=== PATIENT | male | born 1955 | race Caucasian/White ===

== ENCOUNTER → 2016-11-29 | Outpatient (CLI) | payer OTHER ==
[~2016-11-29] MED LIST: ACTOS45 MG PO; ALPRAZOLAM0.5 MG PO; AMARYL1 MG PO; AMARYL4 MG PO; AMITRIPTYLINE H25 MG PO; AMLODIPINE BESY10 MG PO; AMLODIPINE BESYL5 MG PO; ASPIRIN BUFFER325 MG PO; ASPIRIN EC325 MG PO; ATORVASTATIN CA20 MG PO; ATORVASTATIN CA80 MG PO; AUGMENTIN875 MG PO; BAYER CHEWABLE81 MG PO; CLOPIDOGREL75 MG PO; ENDOCET 5-3251 EACH PO; ERGOCALCIF50000 UNIT PO; FENOFIBRATE160 M1 PO; FUROSEMIDE80 MG PO; GLIMEPIRIDE4 MG PO; HYDROCODON-ACE1 EAC7 PO; IMDUR60 MG PO; KLOR-CON 1010 ME1 PO; LANTUS 3 M100 UNITS1 SC; LANTUS100 UNIT/2 SQ; LASIX20 MG PO; LASIX80 MG PO; LIPITOR20 MG PO; LISINOPRIL10 MG PO; LO-DOSE ASPIRIN81 M1 PO; LOPRESSOR25 MG PO; LOPRESSOR50 MG PO; LOTENSIN20 MG PO; METFORMIN HCL1000 MG PO; MICRO-K10 ME2 PO; NEPHRO-VITE,1 TABLET PO; NITROGLYCERIN0.4 MG SL; NITROSTAT0.4 MG SL; NORCO 5/3251 TABLET PO; NORVASC5 MG PO; NOVOLOG100 UNIT/1 SC; OCUVITE TABLET1 EACH PO; PAROXETINE HCL40 MG PO; PAXIL30 MG PO; PAXIL40 MG PO; PRANDIN1 MG PO; RENA PLEX D PO; RENVELA800 MG PO; SIMVASTATIN40 M1 PO; TRICOR145 MG PO; TRILIPIX135 MG PO; ZESTRIL10 MG PO
== END | disposition home or self-care (01) ==
LOC: AMB 08:09
PROC: 02PYX3Z Removal of Infusion Device from Great Vessel, External Approach (ICD-10-PCS; principal; 2016-11-29)
DX: Z49.01 Encounter for fitting and adjustment of extracorporeal dialysis catheter (principal); N18.6 End stage renal disease

== ENCOUNTER 2017-01-27 01:35 | Inpatient (IN) | payer OTHER ==
[~2017-01-27] VITALS: Ht 170.2 cm; Wt 91.0 kg
[2017-01-27] MEDS ORDERED: NITROSTAT0.4 MG SL (02:04)
[2017-01-27 02:34] LABS: EOSINOPHIL (%) 3.1 % (0-5); EOSINOPHIL COUNT 0.3 K/uL (0-0.3); HEMATOCRIT 34.1 % (38.0-50.0); IMMATURE GRANULOCYTE (%) 0.7 % (0.0-0.7); IMMATURE GRANULOCYTE COUNT 0.1 K/uL; INSTRUMENT ABS NEUTROPHIL CT 6.4 K/uL; LYMPHOCYTE COUNT 0.9 K/uL (1.0-2.8); MCH 30.1 PG (29.0-34.0); MCHC 31.7 G/DL (30.0-36.0); MEAN PLAT.VOLUME 9.5 uM^3 (9.0-12.4); MONOCYTE (%) 11.6 % (3-12); NEUTROPHIL (%) 73.6 % (45-76); NEUTROPHIL COUNT 6.4 K/uL (1.8-6.4); PLATELET COUNT 252 K/uL (156-360); RBC DIS.WIDTH-CV 14.7 % (11.8-14.6); RBC DIS.WIDTH-SD 51.3 % (39-53); RED BLOOD COUNT 3.59 M/uL (4.00-5.50); WHITE BLOOD COUNT 8.6 K/uL (4.1-10.2)
[2017-01-27 02:54] LABS: AMYLASE 46 IU/L (1-118); CHLORIDE 99 mEq/L (99-109); POTASSIUM 3.9 mEq/L (3.7-5.4); SODIUM 137 mEq/L (136-147)
[2017-01-27 02:57] LABS: ANION GAP 13 MEQ/L (2-14)
[2017-01-27 02:59] LABS: GFR ESTIMATE (CALCULATED) 11 mL/min/; SERUM ETHYL ALCOHOL < 10 mg/dL
[2017-01-27 03:00] LABS: GLUCOSE 437 mg/dL (70-99); UREA NITROGEN (BUN) 43 mg/dL (9-23)
[2017-01-27 03:02] LABS: LIPASE 44 U/L (1.0-51.0)
[2017-01-27 04:44] LABS: POINT-OF-CARE METER ID UU13113702
[2017-01-27 12:01] LABS: POINT-OF-CARE METER ID UU13113675
[2017-01-27 14:15] LABS: EOSINOPHIL (%) 0.6 % (0-5); EOSINOPHIL COUNT 0.1 K/uL (0-0.3); HEMATOCRIT 34.1 % (38.0-50.0); IMMATURE GRANULOCYTE (%) 0.6 % (0.0-0.7); IMMATURE GRANULOCYTE COUNT 0.1 K/uL; INSTRUMENT ABS NEUTROPHIL CT 12.3 K/uL; LYMPHOCYTE COUNT 0.5 K/uL (1.0-2.8); MCH 31.1 PG (29.0-34.0); MCV 97.4 FL (86-99); MEAN PLAT.VOLUME 9.5 uM^3 (9.0-12.4); MONOCYTE (%) 9.3 % (3-12); MONOCYTE COUNT 1.3 K/uL (0-0.8); NEUTROPHIL (%) 85.5 % (45-76); NEUTROPHIL COUNT 12.3 K/uL (1.8-6.4); PLATELET COUNT 250 K/uL (156-360); RBC DIS.WIDTH-CV 15.2 % (11.8-14.6); RBC DIS.WIDTH-SD 53.9 % (39-53); WHITE BLOOD COUNT 14.4 K/uL (4.1-10.2)
[2017-01-27 14:38] LABS: ANION GAP 12 MEQ/L (2-14); CHLORIDE 103 MEQ/L (99-109); POTASSIUM 4.3 MEQ/L (3.7-5.4); SAMPLE HEMOLYSIS CHECK 0; SAMPLE ICTERIC CHECK 0; SAMPLE LIPEMIA CHECK 0; SODIUM 139 MEQ/L (136-147)
[2017-01-27 14:44] LABS: GFR ESTIMATE (CALCULATED) 11 mL/min/; GLUCOSE 221 mg/dL (70-99); UREA NITROGEN (BUN) 44 mg/dL (9-23)
[2017-01-27 18:16] VITALS: BP 135/64
[2017-01-27 23:19] LABS: POINT-OF-CARE METER ID UU14149397
[2017-01-27 23:47] VITALS: BP 127/60
[2017-01-28 04:02] VITALS: BP 122/60
[2017-01-28 08:00] VITALS: BP 122/58
[2017-01-28 09:10] LABS: HEMATOCRIT 36.4 % (38.0-50.0); MCH 30.6 PG (29.0-34.0); MCHC 31.3 G/DL (30.0-36.0); MCV 97.8 FL (86-99); MEAN PLAT.VOLUME 9.5 uM^3 (9.0-12.4); PLATELET COUNT 282 K/uL (156-360); RBC DIS.WIDTH-CV 15.3 % (11.8-14.6); RBC DIS.WIDTH-SD 55.5 % (39-53); RED BLOOD COUNT 3.72 M/uL (4.00-5.50); WHITE BLOOD COUNT 15.5 K/uL (4.1-10.2)
[2017-01-28 09:39] LABS: ANION GAP 12 MEQ/L (2-14); CHLORIDE 98 MEQ/L (99-109); GFR ESTIMATE (CALCULATED) 11 mL/min/; GLUCOSE 177 mg/dL (70-99); POTASSIUM 4.5 MEQ/L (3.7-5.4); SAMPLE HEMOLYSIS CHECK 0; SAMPLE ICTERIC CHECK 0; SAMPLE LIPEMIA CHECK 0; SODIUM 138 MEQ/L (136-147); UREA NITROGEN (BUN) 28 mg/dL (9-23)
[2017-01-28 11:33] VITALS: BP 116/56
[2017-01-28 12:05] LABS: POINT-OF-CARE METER ID UU14188577
[2017-01-28] MEDS ORDERED: ENDOCET 5-3251 EACH PO (16:26)
[2017-01-28 16:28] VITALS: BP 112/57
[2017-01-28 16:53] LABS: POINT-OF-CARE METER ID UU14188577
[2017-01-28 19:50] VITALS: BP 117/65
[2017-01-28 21:47] LABS: POINT-OF-CARE METER ID UU14149397
[2017-01-28 23:50] VITALS: BP 123/57
[2017-01-29 04:03] VITALS: BP 112/56
[2017-01-29 07:10] LABS: POINT-OF-CARE METER ID UU14188577
[2017-01-29 08:16] VITALS: BP 122/57
[2017-01-29 11:44] LABS: POINT-OF-CARE METER ID UU14188577
[2017-01-29 11:56] VITALS: BP 134/65
[2017-01-29] MEDS ORDERED: ENDOCET 5-3251 EACH PO (13:55)
== END 2017-01-29 14:18 | disposition home or self-care (01) | DRG 510 ==
LOC: EME → TRA → EME 01:35 → TRA 01:35 → EDBD 01:35 → 3EAST 06:52 → EDOF 06:52 → 3EAST 17:54
PROVIDERS: Emergency Medicine; Hospitalist; Internal Medicine; Internal Medicine Nephrology
PROC: 0PSL04Z Reposition Left Ulna with Internal Fixation Device, Open Approach (ICD-10-PCS; principal; 2017-01-27)
PROC: 0PSJ04Z Reposition Left Radius with Internal Fixation Device, Open Approach (ICD-10-PCS; principal; 2017-01-27)
PROC: 0PSJXZZ Reposition Left Radius, External Approach (ICD-10-PCS; 2017-01-27)
PROC: 0PSLXZZ Reposition Left Ulna, External Approach (ICD-10-PCS; 2017-01-27)
PROC: 5A1D00Z (ICD-10-PCS; 2017-01-27)
DX: S52.322A Displaced transverse fracture of shaft of left radius, initial encounter for closed fracture (principal); S52.252A Displaced comminuted fracture of shaft of ulna, left arm, initial encounter for closed fracture; S20.212A Contusion of left front wall of thorax, initial encounter; Y08.02XA Assault by strike by baseball bat, initial encounter; E11.22 Type 2 diabetes mellitus with diabetic chronic kidney disease; I12.0 Hypertensive chronic kidney disease with stage 5 chronic kidney disease or end stage renal disease; N18.6 End stage renal disease; D63.1 Anemia in chronic kidney disease; I25.10 Atherosclerotic heart disease of native coronary artery without angina pectoris; E11.65 Type 2 diabetes mellitus with hyperglycemia; F32.9 Major depressive disorder, single episode, unspecified; G89.29 Other chronic pain; E78.5 Hyperlipidemia, unspecified; E78.00 Pure hypercholesterolemia, unspecified; F41.9 Anxiety disorder, unspecified; F17.200 Nicotine dependence, unspecified, uncomplicated; I25.2 Old myocardial infarction; Z79.82 Long term (current) use of aspirin; Z79.02 Long term (current) use of antithrombotics/antiplatelets; Z99.2 Dependence on renal dialysis
CPT/HCPCS: 71250; 73090; 76000; 80048; 80069; 81003; 82150; 82948; 83690; 85025; 85025 91; 85027; 93005; 94760; 94799; 99281; 99285; C1713; G0480; J0360; J0690; J1170; J1644; J1650; J1815; J2250; J2270; J2405; J3010; J7030; J7050; S0020

== ENCOUNTER 2017-02-28 07:44 | Day surgery (SDC) | payer OTHER ==
[~2017-02-28] VITALS: Ht 170.2 cm; Wt 88.0 kg
[~2017-02-28 07:44] MED LIST changes: +NOVOLOG PE100 UNITS/ SC
[2017-02-28 08:53] LABS: POINT-OF-CARE METER ID UU13113696
[2017-02-28 09:55] LABS: METH RESISTANT S AUREUS PCR NEGATIVE (NEGATIVE)
[2017-02-28 10:05] LABS: PROBE CHECK PASS; SPECIMEN PROCESSING CONTROL PASS
== END 2017-02-28 10:42 | disposition home or self-care (01) ==
LOC: CATH 07:44
PROVIDERS: Surgery
DX: T82.858A Stenosis of other vascular prosthetic devices, implants and grafts, initial encounter (principal); Y83.2 Surgical operation with anastomosis, bypass or graft as the cause of abnormal reaction of the patient, or of later complication, without mention of misadventure at the time of the procedure; I12.0 Hypertensive chronic kidney disease with stage 5 chronic kidney disease or end stage renal disease; E11.22 Type 2 diabetes mellitus with diabetic chronic kidney disease; N18.6 End stage renal disease; Z99.2 Dependence on renal dialysis; Z85.51 Personal history of malignant neoplasm of bladder; I51.9 Heart disease, unspecified; F17.200 Nicotine dependence, unspecified, uncomplicated; Z79.82 Long term (current) use of aspirin; Z79.84 Long term (current) use of oral hypoglycemic drugs
CPT/HCPCS: 82948; 87641; C1725; C1769; C1894; J1644; J2250; J3010

== ENCOUNTER 2017-08-02 19:11 | Observation (INO) | payer OTHER ==
[~2017-08-02] VITALS: Ht 170.2 cm; Wt 92.7 kg
[2017-08-02 19:41] LABS: EOSINOPHIL (%) 2.4 % (0-5); EOSINOPHIL COUNT 0.2 K/uL (0-0.3); HEMATOCRIT 33.6 % (38.0-50.0); IMMATURE GRANULOCYTE (%) 0.2 % (0.0-0.7); INSTRUMENT ABS NEUTROPHIL CT 7.2 K/uL; LYMPHOCYTE COUNT 0.7 K/uL (1.0-2.8); MCH 29.7 PG (29.0-34.0); MCHC 31.3 G/DL (30.0-36.0); MCV 94.9 FL (86-99); MEAN PLAT.VOLUME 9.4 uM^3 (9.0-12.4); MONOCYTE (%) 10.4 % (3-12); NEUTROPHIL (%) 78.8 % (45-76); NEUTROPHIL COUNT 7.2 K/uL (1.8-6.4); PLATELET COUNT 195 K/uL (156-360); RED BLOOD COUNT 3.54 M/uL (4.00-5.50); WHITE BLOOD COUNT 9.2 K/uL (4.1-10.2)
[2017-08-02 19:55] LABS: CHLORIDE 97 mEq/L (99-109); POTASSIUM 3.5 mEq/L (3.7-5.4); SODIUM 142 mEq/L (136-147)
[2017-08-02 19:57] LABS: GLUCOSE 190 mg/dL (70-99)
[2017-08-02 19:58] LABS: ANION GAP 17 MEQ/L (2-14)
[2017-08-02 19:59] LABS: TOTAL BILIRUBIN 0.5 mg/dL (0.0-1.0)
[2017-08-02 20:01] LABS: ALKALINE PHOSPHATASE 157 IU/L (3-129); GFR ESTIMATE (CALCULATED) 11 mL/min/
[2017-08-02 20:02] LABS: UREA NITROGEN (BUN) 29 mg/dL (9-23)
[2017-08-02 20:04] LABS: TROP-I INTERPRETATION NEGATIVE; TROPONIN-I 0.03 ng/mL (0.0-0.30)
[2017-08-02] MEDS ORDERED: PLAVIX75 MG PO (23:22)
[2017-08-02] MEDS ORDERED: IMDUR60 MG PO (23:22)
[2017-08-02] MEDS ORDERED: LO-DOSE ASPIRIN81 M2 PO (23:25)
[2017-08-03 00:38] VITALS: BP 181/77
[2017-08-03 02:21] LABS: TROP-I INTERPRETATION NEGATIVE; TROPONIN-I 0.02 ng/mL (0.0-0.30)
[2017-08-03 02:27] LABS: HDL CHOLESTEROL 42 MG/DL (Desirable>=40); LDL CHOLESTEROL 30 mg/dL (Desirable<100); NON-HDL CHOLESTEROL 49 mg/dL (Desirable<160); TOTAL CHOLESTEROL 91 mg/dL (Desirable<200); TRIGLYCERIDES 95 MG/DL (Normal: <150)
[2017-08-03 03:53] VITALS: BP 157/72
[2017-08-03 07:04] VITALS: BP 160/74
[2017-08-03 08:56] LABS: POINT-OF-CARE METER ID UU13113831
[2017-08-03 09:10] LABS: TROP-I INTERPRETATION NEGATIVE; TROPONIN-I 0.05 ng/mL (0.0-0.30)
[2017-08-03 11:30] VITALS: BP 152/69
[2017-08-03 11:36] LABS: POINT-OF-CARE METER ID UU13113700
[2017-08-03 16:00] VITALS: BP 164/74
[2017-08-03] MEDS ORDERED: IMDUR120 MG PO (16:06)
== END 2017-08-03 16:45 | disposition home or self-care (01) ==
LOC: EME 19:11 → 5WEST 22:44 → EDOF 22:44 → ENRESERV 22:49 → ENPENDDIS 08-03 → 5WEST 08-03 00:29
PROVIDERS: Emergency Medicine; Hospitalist; Physician Assistant Medical
DX: I25.118 Atherosclerotic heart disease of native coronary artery with other forms of angina pectoris (principal); I12.0 Hypertensive chronic kidney disease with stage 5 chronic kidney disease or end stage renal disease; N18.6 End stage renal disease; Z99.2 Dependence on renal dialysis; J90 Pleural effusion, not elsewhere classified; Z95.5 Presence of coronary angioplasty implant and graft; R06.02 Shortness of breath; R05 Cough; G89.29 Other chronic pain; Z85.51 Personal history of malignant neoplasm of bladder; E11.319 Type 2 diabetes mellitus with unspecified diabetic retinopathy without macular edema; H54.42 Blindness, left eye, normal vision right eye; F41.9 Anxiety disorder, unspecified; Z72.0 Tobacco use; Z79.82 Long term (current) use of aspirin; Z79.84 Long term (current) use of oral hypoglycemic drugs; E66.01 Morbid (severe) obesity due to excess calories; Z68.32 Body mass index [BMI] 32.0-32.9, adult; I95.3 Hypotension of hemodialysis; E11.65 Type 2 diabetes mellitus with hyperglycemia; E88.09 Other disorders of plasma-protein metabolism, not elsewhere classified; Z91.19 Patient's noncompliance with other medical treatment and regimen; M79.89 Other specified soft tissue disorders; E78.5 Hyperlipidemia, unspecified; Z80.1 Family history of malignant neoplasm of trachea, bronchus and lung; Z83.3 Family history of diabetes mellitus; Z82.49 Family history of ischemic heart disease and other diseases of the circulatory system
CPT/HCPCS: 71020; 80053; 80061; 82948; 84484; 85025; 93005; 94799; 99281; 99285; G0257; G0378; J1644

== ENCOUNTER 2017-08-24 20:07 | Emergency (ER) | payer OTHER ==
[~2017-08-24] VITALS: Ht 170.2 cm; Wt 99.4 kg
[~2017-08-24 20:07] MED LIST changes: +IMDUR120 MG PO; +LO-DOSE ASPIRIN81 M2 PO; +PLAVIX75 MG PO
[2017-08-24 21:12] LABS: HEMATOCRIT 32.4 % (38.0-50.0); MCH 30.5 PG (29.0-34.0); MCHC 31.8 G/DL (30.0-36.0); MCV 95.9 FL (86-99); MEAN PLAT.VOLUME 9.5 uM^3 (9.0-12.4); PLATELET COUNT 169 K/uL (156-360); RBC DIS.WIDTH-CV 16.5 % (11.8-14.6); RBC DIS.WIDTH-SD 58.2 % (39-53); RED BLOOD COUNT 3.38 M/uL (4.00-5.50); WHITE BLOOD COUNT 7.9 K/uL (4.1-10.2)
[2017-08-24 21:24] LABS: CHLORIDE 104 mEq/L (99-109); POTASSIUM 3.8 mEq/L (3.7-5.4); SODIUM 142 mEq/L (136-147)
[2017-08-24 21:25] LABS: GLUCOSE 139 mg/dL (70-99)
[2017-08-24 21:27] LABS: ANION GAP 16 MEQ/L (2-14)
[2017-08-24 21:29] LABS: GFR ESTIMATE (CALCULATED) 7 mL/min/
[2017-08-24 21:30] LABS: UREA NITROGEN (BUN) 55 mg/dL (9-23)
[2017-08-24 21:35] LABS: TROP-I INTERPRETATION NEGATIVE; TROPONIN-I 0.02 ng/mL (0.0-0.30)
[2017-08-24] MEDS ORDERED: LASIX40 MG PO (22:59)
[2017-08-24 23:18] VITALS: BP 160/83
== END 2017-08-24 23:21 | disposition home or self-care (01) ==
LOC: EME 20:07
PROVIDERS: Emergency Medicine
DX: R60.0 Localized edema (principal); R06.02 Shortness of breath; I12.0 Hypertensive chronic kidney disease with stage 5 chronic kidney disease or end stage renal disease; E11.22 Type 2 diabetes mellitus with diabetic chronic kidney disease; N18.6 End stage renal disease; Z99.2 Dependence on renal dialysis; E78.5 Hyperlipidemia, unspecified; Z79.02 Long term (current) use of antithrombotics/antiplatelets; Z79.82 Long term (current) use of aspirin; Z85.51 Personal history of malignant neoplasm of bladder; F17.200 Nicotine dependence, unspecified, uncomplicated
CPT/HCPCS: 71010; 80048; 84484; 85027; 93005; 99281; 99285

== ENCOUNTER 2017-09-29 01:57 | Inpatient (IN) | payer OTHER ==
[~2017-09-29] VITALS: Ht 170.2 cm; Wt 94.2 kg
[~2017-09-29 01:57] MED LIST changes: +LASIX40 MG PO
[2017-09-29 02:21] LABS: HEMATOCRIT 32.7 % (38.0-50.0); MCH 30.6 PG (29.0-34.0); MCHC 32.4 G/DL (30.0-36.0); MCV 94.5 FL (86-99); MEAN PLAT.VOLUME 9.7 uM^3 (9.0-12.4); PLATELET COUNT 210 K/uL (156-360); RBC DIS.WIDTH-CV 15.1 % (11.8-14.6); RBC DIS.WIDTH-SD 51.9 % (39-53); RED BLOOD COUNT 3.46 M/uL (4.00-5.50); WHITE BLOOD COUNT 8.8 K/uL (4.1-10.2)
[2017-09-29 02:31] LABS: CHLORIDE 100 mEq/L (99-109); POTASSIUM 3.9 mEq/L (3.7-5.4); SODIUM 136 mEq/L (136-147)
[2017-09-29 02:32] LABS: GLUCOSE 260 mg/dL (70-99); INTER. NORMALIZED RATIO 1.2; PROTHROMBIN TIME 13.7 SEC (10.2-12.9)
[2017-09-29 02:34] LABS: ANION GAP 15 MEQ/L (2-14)
[2017-09-29 02:35] LABS: PTT 34.7 SEC (25-37)
[2017-09-29 02:36] LABS: GFR ESTIMATE (CALCULATED) 8 mL/min/
[2017-09-29 02:37] LABS: UREA NITROGEN (BUN) 62 mg/dL (9-23)
[2017-09-29 02:42] LABS: TROP-I INTERPRETATION NEGATIVE; TROPONIN-I 0.02 ng/mL (0.0-0.30)
[2017-09-29] MEDS ORDERED: ABILIFY2 MG PO (04:44)
[2017-09-29] MEDS ORDERED: VENTOLIN HFA18 GM IH (04:45)
[2017-09-29 07:41] LABS: TROP-I INTERPRETATION NEGATIVE; TROPONIN-I 0.09 ng/mL (0.0-0.30)
[2017-09-29 07:42] LABS: POINT-OF-CARE METER ID UU13113698
[2017-09-29 08:15] VITALS: BP 185/71
[2017-09-29 16:00] VITALS: BP 161/70
[2017-09-29 16:04] LABS: TROP-I INTERPRETATION NEGATIVE
[2017-09-29 16:39] LABS: POINT-OF-CARE METER ID UU13113781
[2017-09-29 19:17] VITALS: BP 154/69
[2017-09-29 20:51] LABS: POINT-OF-CARE METER ID UU13113781
[2017-09-29 23:37] VITALS: BP 131/62
[2017-09-30 04:50] VITALS: BP 159/81
[2017-09-30 05:27] LABS: HEMATOCRIT 33.5 % (38.0-50.0); MCH 30.2 PG (29.0-34.0); MCHC 31.9 G/DL (30.0-36.0); MCV 94.6 FL (86-99); MEAN PLAT.VOLUME 9.5 uM^3 (9.0-12.4); PLATELET COUNT 218 K/uL (156-360); RBC DIS.WIDTH-CV 14.9 % (11.8-14.6); RBC DIS.WIDTH-SD 51.6 % (39-53); RED BLOOD COUNT 3.54 M/uL (4.00-5.50); WHITE BLOOD COUNT 6.8 K/uL (4.1-10.2)
[2017-09-30 05:54] LABS: ANION GAP 13 MEQ/L (2-14); CHLORIDE 101 MEQ/L (99-109); GFR ESTIMATE (CALCULATED) 12 mL/min/; SAMPLE HEMOLYSIS CHECK 0; SAMPLE ICTERIC CHECK 0; SAMPLE LIPEMIA CHECK 0; SODIUM 142 MEQ/L (136-147); UREA NITROGEN (BUN) 36 mg/dL (9-23)
[2017-09-30 05:55] LABS: GLUCOSE 106 mg/dL (70-99)
[2017-09-30 07:45] LABS: POINT-OF-CARE METER ID UU13113698
[2017-09-30 07:59] VITALS: BP 148/67
== END 2017-09-30 12:00 | disposition home or self-care (01) | DRG 291 ==
LOC: EME 01:57 → EDOF 04:08 → ENRESERV 04:13 → 4EAST 06:10 → ENPENDDIS 09-30 → 4EAST 09-30 12:00
PROVIDERS: Emergency Medicine; Hospitalist
PROC: 5A1D70Z Performance of Urinary Filtration, Intermittent, Less than 6 Hours Per Day (ICD-10-PCS; principal; 2017-09-29)
DX: I13.2 Hypertensive heart and chronic kidney disease with heart failure and with stage 5 chronic kidney disease, or end stage renal disease (principal); I50.23 Acute on chronic systolic (congestive) heart failure; N18.6 End stage renal disease; Z99.2 Dependence on renal dialysis; E11.22 Type 2 diabetes mellitus with diabetic chronic kidney disease; D63.1 Anemia in chronic kidney disease; E11.65 Type 2 diabetes mellitus with hyperglycemia; N25.81 Secondary hyperparathyroidism of renal origin; E11.3591 Type 2 diabetes mellitus with proliferative diabetic retinopathy without macular edema, right eye; E78.5 Hyperlipidemia, unspecified; I25.10 Atherosclerotic heart disease of native coronary artery without angina pectoris; I25.2 Old myocardial infarction; I45.10 Unspecified right bundle-branch block; R09.02 Hypoxemia; I89.0 Lymphedema, not elsewhere classified; F41.9 Anxiety disorder, unspecified; E66.9 Obesity, unspecified; Z68.32 Body mass index [BMI] 32.0-32.9, adult; F32.9 Major depressive disorder, single episode, unspecified; G89.29 Other chronic pain; H54.62 Unqualified visual loss, left eye, normal vision right eye; Z85.51 Personal history of malignant neoplasm of bladder; F17.210 Nicotine dependence, cigarettes, uncomplicated; Z91.11 Patient's noncompliance with dietary regimen; Z91.15 Patient's noncompliance with renal dialysis; Z95.5 Presence of coronary angioplasty implant and graft; Z79.84 Long term (current) use of oral hypoglycemic drugs; Z79.82 Long term (current) use of aspirin; Z79.02 Long term (current) use of antithrombotics/antiplatelets; Z80.1 Family history of malignant neoplasm of trachea, bronchus and lung; Z82.49 Family history of ischemic heart disease and other diseases of the circulatory system; Z83.3 Family history of diabetes mellitus
CPT/HCPCS: 71010; 71250; 80048; 82948; 83880; 84484; 85027; 85610; 85730; 93005; 93970; 94799; 99202; 99281; 99285; J1644; J1815; J1940

== ENCOUNTER 2017-10-09 05:17 | Inpatient (IN) | payer OTHER ==
[~2017-10-09] VITALS: Ht 170.2 cm; Wt 87.6 kg
[~2017-10-09 05:17] MED LIST changes: +ABILIFY2 MG PO; +VENTOLIN HFA18 GM IH
[2017-10-09 05:43] LABS: HEMATOCRIT 32.5 % (38.0-50.0); MCH 30.9 PG (29.0-34.0); MCHC 32.3 G/DL (30.0-36.0); MCV 95.6 FL (86-99); MEAN PLAT.VOLUME 9.8 uM^3 (9.0-12.4); PLATELET COUNT 182 K/uL (156-360); RBC DIS.WIDTH-CV 15.3 % (11.8-14.6); RBC DIS.WIDTH-SD 53.9 % (39-53); WHITE BLOOD COUNT 7.2 K/uL (4.1-10.2)
[2017-10-09 05:52] LABS: CHLORIDE 98 mEq/L (99-109); GLUCOSE 258 mg/dL (70-99); POTASSIUM 4.2 mEq/L (3.7-5.4); SODIUM 138 mEq/L (136-147)
[2017-10-09 05:53] LABS: ANION GAP 17 MEQ/L (2-14)
[2017-10-09 05:55] LABS: GFR ESTIMATE (CALCULATED) 7 mL/min/
[2017-10-09 05:56] LABS: UREA NITROGEN (BUN) 63 mg/dL (9-23)
[2017-10-09 06:00] LABS: TROP-I INTERPRETATION INDETERMINATE; TROPONIN-I 0.57 ng/mL (0.0-0.30)
[2017-10-09 06:18] LABS: ADD MIUA? YES; BILIRUBIN NEGATIVE; BLOOD SMALL; COLOR YELLOW ((YELLOW)); GLUCOSE (STRIP) >=500; KETONES NEGATIVE; LEUKOCYTES NEGATIVE; NITRITE NEGATIVE; PROTEIN (STRIP) >=500; SPECIFIC GRAVITY 1.018 (1.000-1.030); UROBILINOGEN 0.2 MG/DL (0.2-1.0)
[2017-10-09 06:24] LABS: BACTERIA RARE /HPF; EPITHELIAL CELLS NONE SEEN /HPF; HYALINE CASTS 0-5 /LPF; MUCUS TRACE /LPF; RED BLOOD CELLS 20-30 /HPF (0-5); UCUL ADDED? NO; WHITE BLOOD CELLS 0-5 /HPF (0-5)
[2017-10-09 13:32] LABS: HBSG INDEX 0.17
[2017-10-09 13:33] LABS: HEPATITIS B SURFACE ANTIBODY Nonreactive
[2017-10-09 14:02] LABS: TROP-I INTERPRETATION POSITIVE; TROPONIN-I 0.73 ng/mL (0.0-0.30)
[2017-10-09 17:19] LABS: POINT-OF-CARE METER ID UU13113781
[2017-10-09 17:41] VITALS: BP 167/62
[2017-10-09 18:36] LABS: TROP-I INTERPRETATION POSITIVE; TROPONIN-I 0.75 ng/mL (0.0-0.30)
[2017-10-09 19:27] VITALS: BP 153/68
[2017-10-09 21:26] LABS: POINT-OF-CARE METER ID UU14174216
[2017-10-10 05:18] VITALS: BP 123/68
[2017-10-10 05:28] LABS: EOSINOPHIL (%) 2.3 % (0-5); EOSINOPHIL COUNT 0.1 K/uL (0-0.3); HEMATOCRIT 33.2 % (38.0-50.0); IMMATURE GRANULOCYTE (%) 0.2 % (0.0-0.7); INSTRUMENT ABS NEUTROPHIL CT 3.2 K/uL; LYMPHOCYTE COUNT 1.1 K/uL (1.0-2.8); MCH 30.5 PG (29.0-34.0); MCHC 32.2 G/DL (30.0-36.0); MCV 94.6 FL (86-99); MEAN PLAT.VOLUME 9.7 uM^3 (9.0-12.4); MONOCYTE COUNT 0.7 K/uL (0-0.8); NEUTROPHIL (%) 61.9 % (45-76); NEUTROPHIL COUNT 3.2 K/uL (1.8-6.4); PLATELET COUNT 173 K/uL (156-360); RBC DIS.WIDTH-SD 51.8 % (39-53); RED BLOOD COUNT 3.51 M/uL (4.00-5.50); WHITE BLOOD COUNT 5.1 K/uL (4.1-10.2)
[2017-10-10 05:50] LABS: ANION GAP 12 MEQ/L (2-14); CHLORIDE 96 MEQ/L (99-109); POTASSIUM 3.8 MEQ/L (3.7-5.4); SAMPLE HEMOLYSIS CHECK 0; SAMPLE ICTERIC CHECK 0; SAMPLE LIPEMIA CHECK 0; SODIUM 140 MEQ/L (136-147); VANCOMYCIN, TROUGH 15.3 MCG/ML (10-20)
[2017-10-10 05:52] LABS: GFR ESTIMATE (CALCULATED) 13 mL/min/; GLUCOSE 126 mg/dL (70-99); UREA NITROGEN (BUN) 31 mg/dL (9-23)
[2017-10-10 07:35] LABS: POINT-OF-CARE METER ID UU14314088
[2017-10-10 07:50] VITALS: BP 106/55
[2017-10-10 07:57] LABS: INTERNAL CONTROL VALID? YES
[2017-10-10 11:32] VITALS: BP 119/58
[2017-10-10 12:12] LABS: POINT-OF-CARE METER ID UU13113781; POINT-OF-CARE USER ID ENVKC36
[2017-10-10] MEDS ORDERED: ARIPIPRAZOLE2 MG PO (14:50)
[2017-10-10 14:53] LABS: METH RESISTANT S AUREUS PCR NEGATIVE (NEGATIVE); PROBE CHECK PASS; SPECIMEN PROCESSING CONTROL PASS
[2017-10-10] MEDS ORDERED: CEFDINIR300 MG PO (15:05)
[2017-10-10 15:07] VITALS: BP 157/70
[2017-10-10 16:49] LABS: POINT-OF-CARE METER ID UU13113781; POINT-OF-CARE USER ID ENVKC36
== END 2017-10-10 18:01 | disposition home health service (06) | DRG 193 ==
LOC: EME → EDBD 05:17 → EDOF 08:10 → ENRESERV 08:22 → CANRESERV 13:09 → ENRESERV 13:09 → 4EAST 15:26 → EDOF 15:26 → ENRESERV 15:33 → 4EAST 16:35
PROVIDERS: Emergency Medicine; Family Medicine; Hospitalist; Internal Medicine Nephrology; Physician Assistant
DX: J18.9 Pneumonia, unspecified organism (principal); J96.01 Acute respiratory failure with hypoxia; J81.1 Chronic pulmonary edema; J90 Pleural effusion, not elsewhere classified; R74.8 Abnormal levels of other serum enzymes; N18.6 End stage renal disease; I13.2 Hypertensive heart and chronic kidney disease with heart failure and with stage 5 chronic kidney disease, or end stage renal disease; I50.9 Heart failure, unspecified; I25.10 Atherosclerotic heart disease of native coronary artery without angina pectoris; E78.5 Hyperlipidemia, unspecified; J98.11 Atelectasis; G89.29 Other chronic pain; E11.22 Type 2 diabetes mellitus with diabetic chronic kidney disease; E11.3591 Type 2 diabetes mellitus with proliferative diabetic retinopathy without macular edema, right eye; M51.27 Other intervertebral disc displacement, lumbosacral region; F17.210 Nicotine dependence, cigarettes, uncomplicated; D63.1 Anemia in chronic kidney disease; Z68.30 Body mass index [BMI] 30.0-30.9, adult; E11.3599 Type 2 diabetes mellitus with proliferative diabetic retinopathy without macular edema, unspecified eye; H54.62 Unqualified visual loss, left eye, normal vision right eye; F41.9 Anxiety disorder, unspecified; F32.9 Major depressive disorder, single episode, unspecified; G47.30 Sleep apnea, unspecified; Z85.51 Personal history of malignant neoplasm of bladder; Z95.5 Presence of coronary angioplasty implant and graft; Z99.2 Dependence on renal dialysis; I25.2 Old myocardial infarction; Z90.49 Acquired absence of other specified parts of digestive tract; Z82.49 Family history of ischemic heart disease and other diseases of the circulatory system; Z83.3 Family history of diabetes mellitus; Z80.1 Family history of malignant neoplasm of trachea, bronchus and lung
CPT/HCPCS: 71010; 71020; 71250; 80048; 80202; 81003; 82948; 83605; 83880; 84484; 85025; 85027; 86706; 87040; 87070; 87205; 87340; 87449; 87502; 87641; 93005; 93306; 94640; 94799; 99202; J0692; J1644; J1815; J1940; J2543; J3370

== ENCOUNTER 2017-12-02 02:59 | Observation (INO) | payer OTHER ==
[~2017-12-02] VITALS: Ht 170.2 cm; Wt 92.9 kg
[~2017-12-02 02:59] MED LIST changes: +ARIPIPRAZOLE2 MG PO; +CEFDINIR300 MG PO
[2017-12-02 03:30] LABS: HEMATOCRIT 33.3 % (38.0-50.0); HEMOGLOBIN 10.7 G/DL (12.5-16.6); MCH 30.9 PG (29.0-34.0); MCHC 32.1 G/DL (30.0-36.0); MCV 96.2 FL (86-99); PLATELET COUNT 173 K/uL (156-360); RBC DIS.WIDTH-CV 16.5 % (11.8-14.6); RBC DIS.WIDTH-SD 58.3 % (39-53); RED BLOOD COUNT 3.46 M/uL (4.00-5.50); WHITE BLOOD COUNT 7.3 K/uL (4.1-10.2)
[2017-12-02 03:38] LABS: CHLORIDE 110 mEq/L (99-109); POTASSIUM 5.6 mEq/L (3.7-5.4); SODIUM 138 mEq/L (136-147)
[2017-12-02 03:40] LABS: GLUCOSE 234 mg/dL (70-99)
[2017-12-02 03:44] LABS: CREATININE 11.8 mg/dL (0.6-1.3); GFR ESTIMATE (CALCULATED) 5 mL/min/ (58.99-99999)
[2017-12-02 03:50] LABS: TROP-I INTERPRETATION NEGATIVE; TROPONIN-I 0.02 ng/mL (0.0-0.30)
[2017-12-02 04:16] LABS: UREA NITROGEN (BUN) 113 mg/dL (9-23)
[2017-12-02 04:24] LABS: ALBUMIN 3.2 g/dL (3.2-4.8)
[2017-12-02 04:27] LABS: TOTAL PROTEIN 6.8 g/dL (6.4-8.3)
[2017-12-02 04:29] LABS: TOTAL BILIRUBIN 0.4 mg/dL (0.0-1.0)
[2017-12-02 04:30] LABS: ALKALINE PHOSPHATASE 191 IU/L (3-129)
[2017-12-02 04:32] LABS: AST (GOT) 25 IU/L (2-34)
[2017-12-02 04:33] LABS: ALT (GPT) 55 IU/L (3-49); DIRECT BILIRUBIN 0.2 mg/dL (0.0-0.3)
[2017-12-02 04:34] LABS: LIPASE 62 U/L (1.0-51.0)
[2017-12-02 08:49] VITALS: BP 214/95
[2017-12-02 12:02] LABS: HEPATITIS B SURFACE ANTIGEN Nonreactive
[2017-12-02 12:03] LABS: HEPATITIS B SURFACE ANTIBODY Nonreactive
[2017-12-02] MEDS ORDERED: LASIX40 MG PO (13:47)
== END 2017-12-02 15:20 | disposition home or self-care (01) ==
LOC: EME 02:59 → EDOF 05:46 → ENRESERV 05:49 → 5SOUTH 08:32 → ENPENDDIS 13:46 → 5SOUTH 15:20
PROVIDERS: Hospitalist; Internal Medicine; Internal Medicine Nephrology
PROC: 5A1D70Z Performance of Urinary Filtration, Intermittent, Less than 6 Hours Per Day (ICD-10-PCS; principal; 2017-12-02)
DX: E87.70 Fluid overload, unspecified (principal); I12.0 Hypertensive chronic kidney disease with stage 5 chronic kidney disease or end stage renal disease; E11.22 Type 2 diabetes mellitus with diabetic chronic kidney disease; N18.6 End stage renal disease; Z99.2 Dependence on renal dialysis; Z91.14 Patient's other noncompliance with medication regimen; Z91.15 Patient's noncompliance with renal dialysis; D63.1 Anemia in chronic kidney disease; E87.5 Hyperkalemia; E87.2 Acidosis; I25.10 Atherosclerotic heart disease of native coronary artery without angina pectoris; F41.9 Anxiety disorder, unspecified; E78.5 Hyperlipidemia, unspecified; F17.210 Nicotine dependence, cigarettes, uncomplicated; N25.81 Secondary hyperparathyroidism of renal origin; J81.1 Chronic pulmonary edema; I25.2 Old myocardial infarction; Z95.5 Presence of coronary angioplasty implant and graft; Z85.51 Personal history of malignant neoplasm of bladder; E11.3599 Type 2 diabetes mellitus with proliferative diabetic retinopathy without macular edema, unspecified eye; G89.29 Other chronic pain; H54.40 Blindness, one eye, unspecified eye; Z90.49 Acquired absence of other specified parts of digestive tract; Z82.49 Family history of ischemic heart disease and other diseases of the circulatory system; Z83.3 Family history of diabetes mellitus; Z80.1 Family history of malignant neoplasm of trachea, bronchus and lung; F32.9 Major depressive disorder, single episode, unspecified
CPT/HCPCS: 71046; 80048; 80076; 82948; 83690; 84484; 85027; 86706; 87340; 93005; 94640; G0257; G0378; J1644; J1940

== ENCOUNTER 2018-05-04 04:28 | Emergency (ER) | payer OTHER ==
[~2018-05-04] VITALS: Ht 170.2 cm; Wt 93.3 kg
[2018-05-04] MEDS ORDERED: PERCOCET 5/31 TABLET PO (06:41)
[2018-05-04 07:00] VITALS: BP 178/58
== END 2018-05-04 07:01 | disposition home or self-care (01) ==
LOC: EME 04:28
DX: M79.602 Pain in left arm (principal); E11.9 Type 2 diabetes mellitus without complications; I50.9 Heart failure, unspecified; E78.5 Hyperlipidemia, unspecified; I25.2 Old myocardial infarction; F41.9 Anxiety disorder, unspecified; F32.9 Major depressive disorder, single episode, unspecified; F17.200 Nicotine dependence, unspecified, uncomplicated; Z99.2 Dependence on renal dialysis; Z79.84 Long term (current) use of oral hypoglycemic drugs; Z79.82 Long term (current) use of aspirin; Z85.51 Personal history of malignant neoplasm of bladder; Z87.39 Personal history of other diseases of the musculoskeletal system and connective tissue; Z90.49 Acquired absence of other specified parts of digestive tract
CPT/HCPCS: 73090; 93990; 99281; 99285

== ENCOUNTER 2018-07-02 06:45 | Observation (INO) | payer OTHER ==
[~2018-07-02] VITALS: Ht 170.2 cm; Wt 90.2 kg
[~2018-07-02 06:45] MED LIST changes: +PERCOCET 5/31 TABLET PO
[2018-07-02 07:19] LABS: HEMATOCRIT 32.8 % (38.0-50.0); MCH 32.5 PG (29.0-34.0); MCHC 33.5 G/DL (30.0-36.0); PLATELET COUNT 169 K/uL (156-360); RBC DIS.WIDTH-SD 48.7 % (39-53); RED BLOOD COUNT 3.38 M/uL (4.00-5.50); WHITE BLOOD COUNT 8.5 K/uL (4.1-10.2)
[2018-07-02 07:55] LABS: ALBUMIN 3.7 G/DL (3.2-4.8); ALKALINE PHOSPHATASE 85 IU/L (3-129); ALT (GPT) 17 IU/L (3-49); AST (GOT) 12 IU/L (2-34); CHLORIDE 102 MEQ/L (99-109); CREATININE 13.2 MG/DL (0.6-1.3); GFR ESTIMATE (CALCULATED) 4 mL/min/ (58.99-99999); GLUCOSE 147 mg/dL (70-99); LIPASE 13 U/L (1.0-51.0); POTASSIUM 5.4 MEQ/L (3.7-5.4); SODIUM 142 MEQ/L (136-147); TOTAL BILIRUBIN 0.8 MG/DL (0.0-1.0); TOTAL PROTEIN 7.1 G/DL (6.4-8.3); UREA NITROGEN (BUN) 80 mg/dL (9-23)
[2018-07-02 07:58] LABS: TROP-I INTERPRETATION NEGATIVE; TROPONIN-I 0.07 ng/mL (0.0-0.30)
[2018-07-02] MEDS ORDERED: IMDUR120 MG PO (09:14)
[2018-07-02] MEDS ORDERED: RENAPLEX-D TAB1 EACH PO (09:14)
[2018-07-02] MEDS ORDERED: [UNRECOGNIZED DRUG - OTHER] PO (09:15)
[2018-07-02 15:36] LABS: TROP-I INTERPRETATION NEGATIVE; TROPONIN-I 0.09 ng/mL (0.0-0.30)
[2018-07-02 17:42] VITALS: BP 148/71
[2018-07-02 19:20] VITALS: BP 154/55
[2018-07-02 20:07] LABS: TROP-I INTERPRETATION NEGATIVE
[2018-07-02 23:24] VITALS: BP 147/65
[2018-07-03 02:59] VITALS: BP 156/74
[2018-07-03 06:11] LABS: CHLORIDE 99 MEQ/L (99-109); MAGNESIUM 2.2 mg/dl (1.3-2.7); SODIUM 141 MEQ/L (136-147); UREA NITROGEN (BUN) 43 mg/dL (9-23)
[2018-07-03 06:16] LABS: CREATININE 8.7 MG/DL (0.6-1.3); GFR ESTIMATE (CALCULATED) 7 mL/min/ (58.99-99999); GLUCOSE 98 mg/dL (70-99)
[2018-07-03 07:55] VITALS: BP 177/77
[2018-07-03 09:46] LABS: TROP-I INTERPRETATION NEGATIVE; TROPONIN-I 0.08 ng/mL (0.0-0.30)
[2018-07-03] MEDS ORDERED: NIFEDIPINE ER30 MG PO (11:00)
[2018-07-03 11:39] VITALS: BP 114/67
== END 2018-07-03 14:50 | disposition home or self-care (01) ==
LOC: EME 06:45 → EDOF 08:52 → 4SOUTH 08:52 → EDOF 08:52 → ENRESERV 08:53 → CANRESERV 08:53 → ENRESERV 08:55 → 4SOUTH 17:01
PROVIDERS: Hospitalist; Physician Assistant
PROC: 5A1D70Z Performance of Urinary Filtration, Intermittent, Less than 6 Hours Per Day (ICD-10-PCS; principal; 2018-07-02)
DX: R07.9 Chest pain, unspecified (principal); Z91.15 Patient's noncompliance with renal dialysis; I13.2 Hypertensive heart and chronic kidney disease with heart failure and with stage 5 chronic kidney disease, or end stage renal disease; I50.9 Heart failure, unspecified; N18.6 End stage renal disease; E11.22 Type 2 diabetes mellitus with diabetic chronic kidney disease; Z99.2 Dependence on renal dialysis; I27.20 Pulmonary hypertension, unspecified; I25.10 Atherosclerotic heart disease of native coronary artery without angina pectoris; Z95.5 Presence of coronary angioplasty implant and graft; F17.210 Nicotine dependence, cigarettes, uncomplicated; Z90.49 Acquired absence of other specified parts of digestive tract; Z83.3 Family history of diabetes mellitus; Z82.49 Family history of ischemic heart disease and other diseases of the circulatory system; Z80.1 Family history of malignant neoplasm of trachea, bronchus and lung; Z79.82 Long term (current) use of aspirin; Z79.02 Long term (current) use of antithrombotics/antiplatelets; Z79.84 Long term (current) use of oral hypoglycemic drugs
CPT/HCPCS: 71046; 80048; 80053; 82948; 83690; 83735; 84484; 85027; 93005; 94799; 99281; 99285; G0257; G0378; J1644; J1815